=== PATIENT | female | born 1950 | race Caucasian/White ===

== ENCOUNTER → 2021-04-23 | Day surgery (SDC) | payer MEDICARE, OTHER ==
[~2021-04-23] MED LIST: Benzonatate 100 MG CAP ONE; Benzonatate 100 MG CAP PO SCH; Fentanyl 100 MCG/2 ML VIAL ONE; Midazolam HCl 2 mg/2 ml Vial ONE; Sodium Bicarbonate 2.5 MEQ/5 ML VIAL ONE
[2021-04-23 08:52] LABS: #Eosinphils 0.1 thou/uL (0.0-0.7); #Lymphocytes 1.7 thou/uL (1.20-3.40); #Monocytes 0.5 thou/uL (0.11-0.59); %Basophils 0.5 % (0.0-1.0); %Eosinophils 0.8 % (0.0-10.0); %Lymphocytes 16.5 % (21.0-51.0); %Monocytes 5.1 % (0.0-10.0); %Neutrophils 77.1 % (42.0-75.0); Hemoglobin 15.9 g/dL (12.0-16.0); Mean Corpuscular HGB CONC 32.1 g/dL (32.0-36.0); Mean Corpuscular Hemoglobin 30.3 pg (27.0-31.0); Mean Corpuscular Volume 94.2 fL (78.0-98.0); Mean Platelet Volume 6.7 fL (7.4-10.4); Platelet Count 289 thou/uL (130-400); RBC Distribution Width 11.9 % (11.5-14.5); Red Blood Cell (RBC) Count 5.27 mill/uL (4.20-5.40); White Blood Cell (WBC) Count 10.3 thou/uL (4.8-10.8)
[2021-04-23 09:03] LABS: INR-International Normal Ratio 0.9; Prothrombin Time 12.3 sec (12.0-14.7)
[2021-04-23 09:04] LABS: PTT 38.7 sec (22.9-36.1)
[2021-04-23 09:49] VITALS: BP 119/52; TEMP 98
== END ==
LOC: CT 08:31
PROVIDERS: ATTEND Internal Medicine Pulmonary Disease
PROC: 0BBC3ZX Excision of Right Upper Lung Lobe, Percutaneous Approach, Diagnostic (ICD-10-PCS; principal; 2021-04-23)
DX: C34.11 Malignant neoplasm of upper lobe, right bronchus or lung (principal); J95.811 Postprocedural pneumothorax; J43.9 Emphysema, unspecified; F17.200 Nicotine dependence, unspecified, uncomplicated; I70.0 Atherosclerosis of aorta
CPT/HCPCS: 32408; 71045; 77012; 85025; 85610; 85730; 88305; 88333; 88341; 88342; J2250; J3010

== ENCOUNTER 2021-05-27 09:30 | Outpatient (CLI) | payer MEDICARE, OTHER | END 2021-05-27 09:31 | disposition home or self-care (01) | LOC: PET 09:30 | PROVIDERS: ATTEND Internal Medicine Hematology & Oncology | DX: C34.11 Malignant neoplasm of upper lobe, right bronchus or lung (principal); R91.8 Other nonspecific abnormal finding of lung field; C77.8 Secondary and unspecified malignant neoplasm of lymph nodes of multiple regions | CPT/HCPCS: 70553; 78815; A9552 ==

== ENCOUNTER 2021-10-27 11:45 | Outpatient (CLI) | payer MEDICARE, OTHER | END 2021-10-27 11:46 | disposition home or self-care (01) | LOC: PET 11:45 | PROVIDERS: ATTEND Internal Medicine Hematology & Oncology | DX: C34.11 Malignant neoplasm of upper lobe, right bronchus or lung (principal); Z79.899 Other long term (current) drug therapy | CPT/HCPCS: 78815; 80053; 82248; 83615; 84100; 84436; 84443; 84550; A9552; 36415 ==

== ENCOUNTER 2022-01-25 10:15 | Outpatient (CLI) | payer MEDICARE, OTHER | END 2022-01-25 10:16 | disposition home or self-care (01) | LOC: PET 10:15 | PROVIDERS: ATTEND Internal Medicine Hematology & Oncology | DX: C34.11 Malignant neoplasm of upper lobe, right bronchus or lung (principal); R91.8 Other nonspecific abnormal finding of lung field; Z79.899 Other long term (current) drug therapy | CPT/HCPCS: 78815; A9552 ==

== ENCOUNTER 2022-04-26 11:45 | Outpatient (CLI) | payer MEDICARE, OTHER | END 2022-04-26 11:46 | disposition home or self-care (01) | LOC: PET 11:45 | PROVIDERS: ATTEND Internal Medicine Hematology & Oncology | DX: C34.11 Malignant neoplasm of upper lobe, right bronchus or lung (principal); Z79.899 Other long term (current) drug therapy | CPT/HCPCS: 78815; A9552 ==

== ENCOUNTER 2022-06-08 10:56 | Outpatient (CLI) | payer MEDICARE, OTHER | END 2022-06-08 10:57 | disposition home or self-care (01) | LOC: SCSMRI 10:56 | PROVIDERS: ATTEND Internal Medicine Hematology & Oncology | DX: C34.11 Malignant neoplasm of upper lobe, right bronchus or lung (principal); R42 Dizziness and giddiness; R51.9 Headache, unspecified | CPT/HCPCS: 70553; 80053; 82248; 83615; 84100; 84436; 84443; 84550 ==

== ENCOUNTER 2022-06-20 13:24 | Outpatient (CLI) | payer MEDICARE, OTHER ==
[~2022-06-20 13:24] MED LIST changes: -Benzonatate 100 MG CAP ONE; -Benzonatate 100 MG CAP PO SCH; -Fentanyl 100 MCG/2 ML VIAL ONE; +Magnevist 469MG/ML 20 ML VIAL ONE; -Midazolam HCl 2 mg/2 ml Vial ONE; -Sodium Bicarbonate 2.5 MEQ/5 ML VIAL ONE
== END 2022-06-20 13:25 | disposition home or self-care (01) ==
LOC: TBSIIMAG 13:24
PROVIDERS: ATTEND Radiology Radiation Oncology
DX: C34.90 Malignant neoplasm of unspecified part of unspecified bronchus or lung (principal); C79.31 Secondary malignant neoplasm of brain; G93.6 Cerebral edema
CPT/HCPCS: 70553

== ENCOUNTER 2022-08-02 09:30 | Outpatient (CLI) | payer MEDICARE, OTHER | END 2022-08-02 09:31 | disposition home or self-care (01) | LOC: PET 09:30 | PROVIDERS: ATTEND Internal Medicine Hematology & Oncology | DX: C34.11 Malignant neoplasm of upper lobe, right bronchus or lung (principal); R91.1 Solitary pulmonary nodule | CPT/HCPCS: 78815; A9552 ==

== ENCOUNTER 2022-11-01 12:30 | Outpatient (CLI) | payer MEDICARE, OTHER | END 2022-11-01 12:31 | disposition home or self-care (01) | LOC: PET 12:30 | PROVIDERS: ATTEND Internal Medicine Hematology & Oncology | DX: C34.11 Malignant neoplasm of upper lobe, right bronchus or lung (principal) | CPT/HCPCS: 78815; A9552 ==

== ENCOUNTER 2023-01-24 10:15 | Outpatient (CLI) | payer MEDICARE, OTHER | END 2023-01-24 10:16 | disposition home or self-care (01) | LOC: PET 10:15 | PROVIDERS: ATTEND Internal Medicine Hematology & Oncology | DX: C34.11 Malignant neoplasm of upper lobe, right bronchus or lung (principal) | CPT/HCPCS: 78815; A9552 ==

== ENCOUNTER 2023-01-25 10:15 | Outpatient (CLI) | payer MEDICARE, OTHER | END 2023-01-25 10:16 | disposition home or self-care (01) | LOC: MRI 10:15 | PROVIDERS: ATTEND Radiology Radiation Oncology | DX: C79.31 Secondary malignant neoplasm of brain (principal) | CPT/HCPCS: 70553; 80053; A9579 ==

== ENCOUNTER 2023-04-24 09:36 | Outpatient (CLI) | payer MEDICARE, OTHER | END 2023-04-24 09:37 | disposition home or self-care (01) | LOC: MRI 09:36 | PROVIDERS: ATTEND Radiology Radiation Oncology | DX: C34.90 Malignant neoplasm of unspecified part of unspecified bronchus or lung (principal); C79.31 Secondary malignant neoplasm of brain; G93.89 Other specified disorders of brain | CPT/HCPCS: 70553 ==

== ENCOUNTER 2023-05-01 12:20 | Outpatient (CLI) | payer MEDICARE, OTHER ==
[2023-05-01] MEDS ORDERED: Magnevist 469MG/ML 20 ML VIAL ONE (14:05)
== END 2023-05-01 12:21 | disposition home or self-care (01) ==
LOC: MRI 12:20
PROVIDERS: ATTEND Radiology Radiation Oncology
DX: C34.90 Malignant neoplasm of unspecified part of unspecified bronchus or lung (principal); C79.31 Secondary malignant neoplasm of brain; G93.9 Disorder of brain, unspecified
CPT/HCPCS: 70552

== ENCOUNTER 2024-02-19 07:50 | Outpatient (CLI) | payer MEDICARE, OTHER ==
[2024-02-19] MEDS ORDERED: Iopamidol 370 76% 100 ML VIAL ONE (10:34)
== END 2024-02-19 07:51 | disposition home or self-care (01) ==
LOC: BICCT 07:50
PROVIDERS: ATTEND Internal Medicine Hematology & Oncology
DX: C34.11 Malignant neoplasm of upper lobe, right bronchus or lung (principal); J92.9 Pleural plaque without asbestos
CPT/HCPCS: 71260; 82565

== ENCOUNTER 2024-02-26 08:00 | Outpatient (CLI) | payer MEDICARE, OTHER | END 2024-02-26 08:01 | disposition home or self-care (01) | LOC: PET 08:00 | PROVIDERS: ATTEND Internal Medicine Hematology & Oncology | DX: C34.11 Malignant neoplasm of upper lobe, right bronchus or lung (principal); Z79.899 Other long term (current) drug therapy; R91.1 Solitary pulmonary nodule | CPT/HCPCS: 78815; A9552 ==

== ENCOUNTER 2024-02-27 08:49 | Outpatient (CLI) | payer MEDICARE, OTHER ==
[2024-02-27] MEDS ORDERED: Magnevist 469MG/ML 20 ML VIAL ONE (12:02)
== END 2024-02-27 08:50 | disposition home or self-care (01) ==
LOC: MRI 08:49
PROVIDERS: ATTEND Radiology Radiation Oncology
DX: C34.90 Malignant neoplasm of unspecified part of unspecified bronchus or lung (principal); Z85.841 Personal history of malignant neoplasm of brain; Z98.890 Other specified postprocedural states
CPT/HCPCS: 70553; 76376

== ENCOUNTER 2024-05-31 08:00 | Outpatient (CLI) | payer MEDICARE, OTHER | END 2024-05-31 08:01 | disposition home or self-care (01) | LOC: PET 08:00 | PROVIDERS: ATTEND Internal Medicine Hematology & Oncology | DX: C34.11 Malignant neoplasm of upper lobe, right bronchus or lung (principal); R91.8 Other nonspecific abnormal finding of lung field; Z79.899 Other long term (current) drug therapy | CPT/HCPCS: 78815; A9552 ==

== ENCOUNTER 2024-11-13 08:45 | Outpatient (CLI) | payer MEDICARE, OTHER | END 2024-11-13 08:46 | disposition home or self-care (01) | LOC: PET 08:45 | PROVIDERS: ATTEND Internal Medicine Hematology & Oncology | DX: C34.11 Malignant neoplasm of upper lobe, right bronchus or lung (principal); J94.8 Other specified pleural conditions; R91.1 Solitary pulmonary nodule; Z79.899 Other long term (current) drug therapy | CPT/HCPCS: 78815; A9552 ==

== ENCOUNTER 2025-02-13 08:00 | Outpatient (CLI) | payer MEDICARE, OTHER | END 2025-02-13 08:01 | disposition home or self-care (01) | LOC: PET 08:00 | PROVIDERS: ATTEND Internal Medicine Hematology & Oncology | DX: C34.11 Malignant neoplasm of upper lobe, right bronchus or lung (principal); Z79.899 Other long term (current) drug therapy; R91.1 Solitary pulmonary nodule | CPT/HCPCS: 78815; A9552 ==